=== PATIENT | female | born 1955 | race Caucasian/White ===

== ENCOUNTER 2022-10-08 14:41 | Outpatient (CLI) | payer MEDICARE, BC | END 2022-10-08 23:59 | disposition home or self-care (01) | LOC: RAD 14:41 | PROVIDERS: ATTEND Internal Medicine Cardiovascular Disease | DX: I08.8 Other rheumatic multiple valve diseases (principal) | CPT/HCPCS: 93306 ==

== ENCOUNTER 2022-10-29 09:34 | Outpatient (CLI) | payer MEDICARE, BC ==
[2022-10-29] VITALS (21 sets, daily range): BP systolic 140–180; BP diastolic 73–111
== END 2022-10-29 23:59 | disposition home or self-care (01) ==
LOC: CARD DIAG 09:34
PROVIDERS: ATTEND Internal Medicine Cardiovascular Disease
DX: I95.9 Hypotension, unspecified (principal); R42 Dizziness and giddiness
CPT/HCPCS: 93660